=== PATIENT | male | born 1965 | race Caucasian/White ===

== ENCOUNTER 2022-03-28 10:22 | Emergency (ER) | payer MEDICAID, SELFPAY ==
[2022-03-28 10:41] VITALS: BP 128/93; PULSE 70; RESP 18; TEMP 36.8; O2SAT 100; BMI 27.8
[2022-03-28 11:13] VITALS: BP 128/93; PULSE 70; RESP 18; TEMP 36.8; O2SAT 100; BMI 27.7
--- NOTE | 2022-03-28 11:19 | EXP.UTC ---
Discharge Plan Disposition Patient Disposition: Home, Self-Care Condition: Good Prescriptions Prescriptions: New azithromycin [azithromycin] 250 mg tablet 250 mg PO DIRECTED Qty: 6 0RF Rx Instructions: Take two (2) tablets on day #1, then one (1) tablet day #2 thru #5 Referrals Follow up/Referrals: Provider,Referral, MD [Primary Care Provider] - See instructions Activity Restrictions/Add. Instructions Additional Instructions/Restrictions: Start antibiotic today. Be sure to complete entire prescription even if feeling better Tylenol and ibuprofen as needed for pain or fever Humidifier/vaporizer/hot steamy shower Follow-up with primary care tomorrow. Follow-up immediately in the ER of the [facility] for new or worsening symptoms or no noticeable improvement over the next 48-72 hours. Stop smoking Clinical Impressions Clinical Impression: Acute bronchitis Instructions Patient Instructions: DI for Acute Bronchitis Discharge ED Provider: Sola ([facility])Jessie [facility] HPI General Stated complaint: congestion, cough, Mode of Arrival: Ambulatory Source of Information: Patient Limitations: No Limitations Time Seen by Provider: 03/28/22 11:20 Description of Symptoms (Recalled from Triage Doc. by RN): pt comes in with c/o cough, runny nose, chest congestion. symptoms began 2 days ago HEENT Symptoms (Recalled from RN notes): Yes Resp Symptoms (Recalled from RN notes): Yes Skin Symptoms (Recalled from RN notes): No MS Symptoms (Recalled from RN notes): No Functional Status (Recalled from RN notes): n/a History of Present Illness Provider Complaint: 56 yr old male presents for c/o coughing up yellow sputum, runny nose, chest congestion. symptoms began 2 days ago and now mucus is getting thick and dark Related Data Previous Rx's Medication Instructions Recorded azithromycin 250 mg tablet 250 mg PO DIRECTED #6 tabs 03/28/22 Allergies Allergy/AdvReac Type Severity Reaction Status Date / Time No Known Allergies Allergy Verified 03/28/22 11:16 Worker's Comp Is this a Worker's Comp case?: No [facility] Disclaimer: The information contained in this section may have been updated after the patient was seen, as this information can be updated by other users. Social History , [employer]) Smoking Status: Smoker, status unknown alcohol intake: never current occupational status: employed Travel in the last 8 weeks: None ROS Obtained: Yes All systems reviewed & no additional complaints except as documented Constitutional Constitutional: Reports system reviewed and no additional complaints, except as documented and Reports as per HPI Eyes Eyes: Reports system reviewed and no additional complaints, except as documented and Reports as per HPI ENT Ears, Nose, Mouth, and Throat: Reports system reviewed and no additional complaints, except as documented, Reports as per HPI and Reports nasal congestion Cardiovascular Cardiovascular: Reports system reviewed and no additional complaints, except as documented and Reports as per HPI Respiratory Respiratory: Reports system reviewed and no additional complaints, except as documented, Reports as per HPI, Reports change in phlegm color, Reports cough and Reports cough with sputum production Gastrointestinal Gastrointestingal: Reports system reviewed and no additional complaints, except as documented Musculoskeletal Musculoskeletal: Reports system reviewed and no additional complaints, except as documented Integumentary/Breasts Skin/Breast: Reports system reviewed and no additional complaints, except as documented Neurologic Neurologic: Reports system reviewed and no additional complaints, except as documented Endocrine Endocrine: Reports system reviewed and no additional complaints, except as documented Hematologic/Lymphatic Henatologic/Lymphatic: Reports system reviewed and no additional complaints, except as documented
[2022-03-28 11:32] VITALS: BP 128/93; PULSE 70; RESP 18; TEMP 36.8
== END 2022-03-28 11:32 | disposition home or self-care (01) ==
LOC: ER 10:53 → UTC 10:53
PROVIDERS: Emergency Provider Nurse Practitioner Family
DX: J20.9 Acute bronchitis, unspecified (principal)
CPT/HCPCS: 99212; G0463

== ENCOUNTER 2022-05-21 11:05 | Emergency (ER) | payer MEDICAID, SELFPAY ==
[2022-05-21 11:15] VITALS: BP 133/82; PULSE 93; RESP 20; TEMP 36.9; O2SAT 97; BMI 27.6
--- NOTE | 2022-05-21 11:41 | EXP.UTC ---
Discharge Plan Disposition Patient Disposition: Home, Self-Care Condition: Good Prescriptions Prescriptions: New benzonatate 100 mg capsule 100 mg PO TID PRN (Reason: cough) Qty: 30 0RF azithromycin [Zithromax Z-Aman] 250 mg tablet See Rx Instructions .ROUTE .COMPLEX 5 Days Qty: 6 0RF Rx Instructions: For 250 mg dose pack: take 500 mg today (day 1), then 250 mg for 4 days (days 2-5) methylprednisolone [Medrol (Aman)] 4 mg tablets,dose pack See Rx Instructions .Route .COMPLEX 6 Days Qty: 21 0RF Rx Instructions: taper pack; Referrals Follow up/Referrals: Ganesh Jeong [Primary Care Provider] - See instructions Activity Restrictions/Add. Instructions Additional Instructions/Restrictions: Start antibiotic today. Be sure to complete entire prescription even if feeling better Monitor temp. Tylenol every 4 hours as needed and / or ibuprofen every 6 hours as needed ( As long as your primary care physician has told you that it ok to take both. For fever/aches/pains ER if no less than 101 despite Tylenol or Motrin Humidifier/vaporizer or hot steamy shower *Tessalon Perles will not cause drowsiness but use at bedtime to help stop cough so that you may get some rest. *Start steroid today. Helps with inflammation therefore, cough and wheezing. Follow directions on the package. Reviewed side effects. Patient reports taking them before. Follow up IMMEDIATELY for new or worsening of symptoms OR no noticeable improvement over the next 48-72 hours. 911 immediately for any life threatening symptoms such as chest pain or difficulty breathing Clinical Impressions Clinical Impression: Acute bronchitis Instructions Patient Instructions: Cough, DI for Sinusitis Discharge ED Provider: Amita Turner [facility] General Stated complaint: Cough congestion drainage Mode of Arrival: Ambulatory Source of Information: Patient Limitations: No Limitations Time Seen by Provider: 05/21/22 11:41 Description of Symptoms (Recalled from Triage Doc. by RN): congestion HEENT Symptoms (Recalled from RN notes): Yes Resp Symptoms (Recalled from RN notes): No Skin Symptoms (Recalled from RN notes): No MS Symptoms (Recalled from RN notes): No Functional Status (Recalled from RN notes): n/a History of Present Illness Provider Complaint: Patient states that he has been having sinus congestion and pressure, drainage in the back of his throat and cough States that he feels like it is trying to move into his chest Statse that he wanted to get checked before it got too bad Related Data Previous Rx's Medication Instructions Recorded azithromycin 250 mg tablet See Rx Instructions PO .COMPLEX 5 05/21/22 (Zithromax Z-Aman) days #6 tabs benzonatate 100 mg capsule 100 mg PO TID PRN cough #30 caps 05/21/22 methylprednisolone 4 mg tablets in See Rx Instructions .Route 05/21/22 a dose pack (Medrol (Aman)) .COMPLEX 6 days #21 tabs Allergies Allergy/AdvReac Type Severity Reaction Status Date / Time No Known Allergies Allergy Verified 05/21/22 11:38 Worker's Comp Is this a Worker's Comp case?: No [facility] Disclaimer: The information contained in this section may have been updated after the patient was seen, as this information can be updated by other users. Medical History (Updated 05/21/22 @ 11:45 by Amita Turner APRN) No significant past medical history Family History (Updated 05/21/22 @ 11:38 by Venus Blanco RN) Other No significant family history Social History Smoking Status: Smoker, status unknown alcohol intake: never current occupational status: employed Travel in the last 8 weeks: None ROS Obtained: Yes All systems reviewed & no additional complaints except as documented and Yes Systems reviewed as appropriate & no additional complaints except as documented Constitutional Constitutional: Reports s
[2022-05-21 11:52] VITALS: BP 133/82; PULSE 93; RESP 20; TEMP 36.9; O2SAT 97
== END 2022-05-21 11:50 | disposition home or self-care (01) ==
PROVIDERS: Emergency Provider Nurse Practitioner; PCP Family Medicine
DX: J20.9 Acute bronchitis, unspecified (principal)
CPT/HCPCS: 99212; 99213; G0463

== ENCOUNTER 2022-05-24 09:44 | Emergency (ER) | payer MEDICAID, SELFPAY ==
[2022-05-24 09:59] VITALS: BP 140/89; PULSE 70; RESP 17; TEMP 36.6; O2SAT 99; BMI 28.4
--- NOTE | 2022-05-24 10:14 | EXP.UTC ---
Discharge Plan Disposition Patient Disposition: Home, Self-Care Condition: Good Prescriptions Prescriptions: No Action benzonatate 100 mg capsule 100 mg PO TID PRN (Reason: cough) Qty: 30 0RF azithromycin [Zithromax Z-Aman] 250 mg tablet See Rx Instructions .ROUTE .COMPLEX 5 Days Qty: 6 0RF Rx Instructions: For 250 mg dose pack: take 500 mg today (day 1), then 250 mg for 4 days (days 2-5) methylprednisolone [Medrol (Aman)] 4 mg tablets,dose pack See Rx Instructions .Route .COMPLEX 6 Days Qty: 21 0RF Rx Instructions: taper pack; Referrals Follow up/Referrals: Ganesh Jeong [Primary Care Provider] - See instructions Activity Restrictions/Add. Instructions Additional Instructions/Restrictions: *Monitor Temp, Over the counter Motrin or Tylenol as directed/as needed Tylenol every 4 hours and Motrin every 6 hours (as long as your family doctor has told you that you can take it) for fever or pain. and straight to ER if unable to lower temp less than 101.0 after medication given Follow up IMMEDIATELY for new or worsening symptoms or no Noticeable improvement over the next 48-72 hours. 911 for difficulty breathing or swallowing You were tested for today for COVID19 your test result should be back in the next 24-48 hours, you may Check your Results on the [facility] Clinical Impressions Clinical Impression: Encounter for laboratory testing for COVID-19 virus Instructions Patient Instructions: COVID-19 Viral Test, Preventing the Spread of Coronavirus Discharge Instructions Discharge ED Provider: Amita Turner [facility] HPI General Stated complaint: Covid exposure covid test Mode of Arrival: Ambulatory Source of Information: Patient Limitations: No Limitations Time Seen by Provider: 05/24/22 10:14 Description of Symptoms (Recalled from Triage Doc. by RN): pt had recent covid exposure, but no symptoms. HEENT Symptoms (Recalled from RN notes): No Resp Symptoms (Recalled from RN notes): No Skin Symptoms (Recalled from RN notes): No MS Symptoms (Recalled from RN notes): No Functional Status (Recalled from RN notes): n/a History of Present Illness Provider Complaint: Patient states that he was recently around his brother that has tested positive for COVID States that he was sick when he was around brother but feeling better now, states that he wanted to get tested to make sure he doesnt have it Related Data Previous Rx's Medication Instructions Recorded azithromycin 250 mg tablet See Rx Instructions PO .COMPLEX 5 05/21/22 (Zithromax Z-Aman) days #6 tabs benzonatate 100 mg capsule 100 mg PO TID PRN cough #30 caps 05/21/22 methylprednisolone 4 mg tablets in See Rx Instructions .Route 05/21/22 a dose pack (Medrol (Aman)) .COMPLEX 6 days #21 tabs Allergies Allergy/AdvReac Type Severity Reaction Status Date / Time No Known Allergies Allergy Verified 05/24/22 10:02 Worker's Comp Is this a Worker's Comp case?: No [facility] Disclaimer: The information contained in this section may have been updated after the patient was seen, as this information can be updated by other users. Medical History (Updated 05/24/22 @ 10:20 by Amita Turner APRN) No significant past medical history Family History (Updated 05/21/22 @ 11:38 by Venus Blanco RN) Other No significant family history Social History Smoking Status: Smoker, status unknown alcohol intake: never current occupational status: employed Travel in the last 8 weeks: None ROS Obtained: Yes All systems reviewed & no additional complaints except as documented and Yes Systems reviewed as appropriate & no additional complaints except as documented Constitutional Constitutional: Reports system reviewed and no additional complaints, except as documented and Reports as per HPI ENT Ears, Nose, Mouth, and Throat: Reports system reviewed and no additional complaints, exc
[2022-05-24 10:30] VITALS: BP 140/80; PULSE 70; RESP 17; TEMP 36.6; O2SAT 99
== END 2022-05-24 10:34 | disposition home or self-care (01) ==
PROVIDERS: Emergency Provider Nurse Practitioner; PCP Family Medicine
DX: U07.1 COVID-19
CPT/HCPCS: 99212; C9803; G0463; U0003; U0005

== ENCOUNTER 2022-11-10 11:12 | Emergency (ER) | payer MEDICAID, SELFPAY ==
[2022-11-10 11:13] VITALS: BP 139/98; PULSE 67; RESP 18; TEMP 36.9; O2SAT 98; BMI 27.1
--- NOTE | 2022-11-10 11:24 | CT_ITS ---
FINAL REPORT TECHNIQUE: Noncontrast exam CLINICAL HISTORY: fall head injury FINDINGS: No abnormal density is seen. Ventricles are normal. There is no hemorrhage. No mass effect is seen. Bone windows show no evidence of fracture. IMPRESSION: No acute findings Reviewed, Interpreted and Dictated by Cheyenne Gomez MD Transcribed by Lady Porter Authenticated and [facility]
--- NOTE | 2022-11-10 11:25 | HMH.EDGENADL ---
Discharge Plan Disposition Patient Disposition: Home, Self-Care Prescriptions Prescriptions: No Action benzonatate 100 mg capsule 100 mg PO TID PRN (Reason: cough) Qty: 30 0RF azithromycin [Zithromax Z-Aman] 250 mg tablet See Rx Instructions .ROUTE .COMPLEX 5 Days Qty: 6 0RF Rx Instructions: For 250 mg dose pack: take 500 mg today (day 1), then 250 mg for 4 days (days 2-5) methylprednisolone [Medrol (Aman)] 4 mg tablets,dose pack See Rx Instructions .Route .COMPLEX 6 Days Qty: 21 0RF Rx Instructions: taper pack; Referrals Follow up/Referrals: Provider,Referral, MD [Primary Care Provider] - See instructions Activity Restrictions/Add. Instructions Additional Instructions/Restrictions: Please get your antonia removed in 7 to 10 days. You may take Tylenol as needed for your symptoms. Return with any worsening concerns. Clinical Impressions Clinical Impression: Minor head injury, Laceration of scalp, Concussion Discharge ED Provider: Jorge Belcher General Adult HPI General Chief complaint: Head Injury Stated complaint: AO 11/10 fall, head pain/laceration, lightheaded Time Seen by Provider: 11/10/22 11:19 History of Present Illness HPI narrative: 57-year-old male here with a head injury. 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 Did not lose consciousness but has had some dizziness and some nausea associated with this. No neck pain or injuries elsewhere. He does have some bleeding on the posterior side of his head. Tetanus is unknown. Related Data Previous Rx's Medication Instructions Recorded azithromycin 250 mg tablet See Rx Instructions PO .COMPLEX 5 05/21/22 (Zithromax Z-Aman) days #6 tabs benzonatate 100 mg capsule 100 mg PO TID PRN cough #30 caps 05/21/22 methylprednisolone 4 mg tablets in See Rx Instructions .Route 05/21/22 a dose pack (Medrol (Aman)) .COMPLEX 6 days #21 tabs Allergies Allergy/AdvReac Type Severity Reaction Status Date / Time No Known Allergies Allergy Verified 05/24/22 10:02 [facility] Disclaimer: The information contained in this section may have been updated after the patient was seen, as this information can be updated by other users. Medical History (Updated 11/10/22 @ 14:04 by Jorge Belcher MD) No significant past medical history Family History (Updated 05/21/22 @ 11:38 by Venus Blanco RN) Other No significant family history Social History Smoking Status: Never smoker alcohol intake: never current occupational status: employed Travel in the last 8 weeks: None ROS Obtained: Yes All systems reviewed & no additional complaints except as documented Physical Exam General General appearance: alert and in no apparent distress Head Head exam: other (There is a 2 cm vertically oriented laceration in the posterior occipital region of the scalp there is no evidence of depressed skull fracture no rodriguez sign or raccoon eyes) Respiratory Respiratory exam: Present normal lung sounds bilaterally and respiratory distress Cardiovascular Cardiovascular exam: Present regular rate; Absent tachycardia Neurological Exam Neurological exam: Present alert and oriented X3 Medical Decision Making [place] Inquiry Pt receiving controlled substance: No Vital Signs: 11/10/22 11:13 11/10/22 11:30 11/10/22 12:00 Temperature 98.4 F Temperature Source Oral Pulse Rate 65 Pulse Rate [Left Radial] 67 Respiratory Rate 18 20 Blood Pressure 130/90 130/89 Blood Pressure [Right Arm] 139/98 H Blood Pressure Mean 102 102 Blood Pressure Mean [Right Arm] 111 Blood Pressure Source [Right Arm] Automatic Cuff Blood Pressure Position [Right Arm] Sitting 02 Sat by Pulse Oximetry 98 98 Oxygen Delivery Method Room Air 11/10/22 12:30 Temperature Temperatur
[2022-11-10 11:30] VITALS: BP 130/90
[2022-11-10 12:00] VITALS: BP 130/89; PULSE 65; RESP 20; O2SAT 98
[2022-11-10 12:30] VITALS: BP 117/86; PULSE 59; RESP 20; O2SAT 98
[2022-11-10 14:20] VITALS: BP 113/78; PULSE 52; RESP 18; TEMP 36.4; O2SAT 98
== END 2022-11-10 14:20 | disposition home or self-care (01) ==
PROVIDERS: Emergency Provider Student in an Organized Health Care Education/Training Program
DX: S06.0X0A Concussion without loss of consciousness, initial encounter (principal); S01.01XA Laceration without foreign body of scalp, initial encounter; R42 Dizziness and giddiness; R11.0 Nausea; W18.30XA Fall on same level, unspecified, initial encounter; Z23 Encounter for immunization
CPT/HCPCS: 12001; 70450; 90471; 90715; 96372; 99284

== ENCOUNTER 2022-11-19 14:54 | Emergency (ER) | payer MEDICAID, SELFPAY ==
[2022-11-19 14:55] VITALS: BP 126/74; PULSE 81; RESP 16; TEMP 36.7; O2SAT 100; BMI 29.4
[2022-11-19 15:00] VITALS: BP 126/74; PULSE 81; RESP 16; TEMP 36.7; O2SAT 100
== END 2022-11-19 15:02 | disposition home or self-care (01) ==
LOC: UTC 14:57
PROVIDERS: Emergency Provider Nurse Practitioner
DX: Z48.02 Encounter for removal of sutures (principal)

== ENCOUNTER 2024-01-30 10:14 | Emergency (ER) | payer MEDICAID, SELFPAY ==
[2024-01-30 11:00] VITALS: BP 158/108; PULSE 65; RESP 20; TEMP 36.7; O2SAT 98; BMI 38.9
--- NOTE | 2024-01-30 11:20 | EXP.UTC ---
Discharge Plan Disposition Patient Disposition: Home, Self-Care Condition: Good Referrals Follow up/Referrals: Provider,Referral, MD [Primary Care Provider] - See instructions Activity Restrictions/Add. Instructions Additional Instructions/Restrictions: Follow up with your Family Doctor if needed Straight to ER if any life threatening symptoms Follow up with ENT if you continue to have symptoms Do not stick anything in your ear Clinical Impressions Clinical Impression: Foreign body in ear Instructions Patient Instructions: DI for Removal of Foreign Body From Ear Print Language Print Language: Cambodian Discharge ED Provider: Amita Turner [facility] General Stated complaint: object in right ear Mode of Arrival: Ambulatory Source of Information: Patient Time Seen by Provider: 01/30/24 11:21 Description of Symptoms (Recalled from Triage Doc. by RN): THINKS HE HAS A COTTON TIP STUCK IN RIGHT EAR HEENT Symptoms (Recalled from RN notes): Yes Resp Symptoms (Recalled from RN notes): No Skin Symptoms (Recalled from RN notes): No MS Symptoms (Recalled from RN notes): No Functional Status (Recalled from RN notes): WNL History of Present Illness Provider Complaint: Patient states that he was cleaning his ear with Qtip and thinks some of the cotton came off in his ear feels like a piece is stuck in there Related Data Allergies Allergy/AdvReac Type Severity Reaction Status Date / Time No Known Allergies Allergy Verified 05/24/22 10:02 Worker's Comp Is this a Worker's Comp case?: No [facility] Disclaimer: The information contained in this section may have been updated after the patient was seen, as this information can be updated by other users. Medical History (Updated 01/30/24 @ 11:25 by Amita Turner APRN) No significant past medical history Family History (Updated 05/21/22 @ 11:38 by Venus Blanco RN) Other No significant family history Social History Smoking Status: Never smoker alcohol intake: never current occupational status: employed Travel in the last 8 weeks: None ROS Obtained: Yes All systems reviewed & no additional complaints except as documented and Yes Systems reviewed as appropriate & no additional complaints except as documented Constitutional Constitutional: Reports system reviewed and no additional complaints, except as documented and Reports as per HPI ENT Ears, Nose, Mouth, and Throat: Reports system reviewed and no additional complaints, except as documented, Reports as per HPI and Reports otalgia (feels like cotton stuck in ear) Cardiovascular Cardiovascular: Reports system reviewed and no additional complaints, except as documented and Reports as per HPI Respiratory Respiratory: Reports system reviewed and no additional complaints, except as documented and Reports as per HPI Gastrointestinal Gastrointestingal: Reports system reviewed and no additional complaints, except as documented and as per HPI Physical Exam General General appearance: alert and in no apparent distress ENT ENT exam: Present mucous membranes moist Expanded ENT Exam TM/Canal exam: Right TM: foreign body (small piece of cotton noted) Nose exam: Absent sinus tenderness Throat exam: Present normal inspection Respiratory Respiratory exam: Present normal lung sounds bilaterally; Absent respiratory distress or wheezes Cardiovascular Cardiovascular exam: Present regular rate, normal rhythm and normal heart sounds Neurological Exam Neurological exam: Present alert, oriented X3 and normal gait Medical Decision Making Medical Records Screening: Per USPSTF and CDC recommendations, given the prevalence of disease in our region, it is our hospital?s policy to screen for HIV and viral Hepatitis for all patients aged 18 and over and those with ongoing risk factors. [place] Inquiry Pt receiving controlled substance: No [place] was queried for this patient: No Vital Signs: 01/30/24 11:00 Temperature 98.1 F Temperature Source Oral Pulse Rate [Left Brachial] 65 Respiratory Rate 20 Blood Pressure [Left Arm] 158/108 H Blood Pressure Mean [Left Arm] 124 02 Sat by Pulse Oximetry 98 Procedures FB Removal Ear Location: ear canal (R) Foreign Body Suspected: other (small piece of cotton) TM intact pre-procedure: yes Foreign Body Removed: yes (small piece of cotton noted in irrigation liquid) Foreign Body Removal Technique: irrigation Tympanic Membrane Intact Post Procedure: Yes Patient Tolerated Procedure: well Complications: none
[2024-01-30 11:51] VITALS: BP 158/108; PULSE 65; RESP 20; TEMP 36.7
== END 2024-01-30 11:51 | disposition home or self-care (01) ==
PROVIDERS: Emergency Provider Nurse Practitioner
DX: T16.9XXA Foreign body in ear, unspecified ear, initial encounter (principal); H92.01 Otalgia, right ear
CPT/HCPCS: 99212; G0381

== ENCOUNTER 2024-03-25 23:02 | Emergency (ER) | payer MEDICAID, SELFPAY ==
[2024-03-25 23:03] VITALS: BP 183/114; PULSE 75; RESP 20; TEMP 36.7; O2SAT 97; BMI 27.1
--- NOTE | 2024-03-25 23:06 | HMH.EDGENADL ---
Discharge Plan Disposition Patient Disposition: Home, Self-Care Prescriptions Prescriptions: New levofloxacin 750 mg tablet 750 mg PO DAILY 7 Days Qty: 7 0RF Referrals Follow up/Referrals: Provider,Moom, [Primary Care Provider] - See instructions Activity Restrictions/Add. Instructions Additional Instructions/Restrictions: Please follow-up with your primary care provider. Please return to the emergency department if you develop any new or worsening symptoms or become concerned for your health. Please take antibiotics as prescribed to treat your urinary tract infection. Clinical Impressions Clinical Impression: Acute UTI Instructions Patient Instructions: DI for Urinary Tract Infection (UTI), DI for Urinary Tract Infection in Children Print Language Print Language: Italian Discharge ED Provider: Thony Montano Adult HPI General Chief complaint: Urogenital-Male Stated complaint: possible UTI Time Seen by Provider: 03/25/24 23:06 History of Present Illness HPI narrative: 58-year-old male without significant past medical history presents for burning with urination. He reports has been ongoing for the last few days. He took Azo at home over the last few days. He denies any flank pain, denies any fever or generalized symptoms. Reports he had a UTI a few years ago as well. Related Data Previous Rx's ?Medication ?Instructions ?Recorded levofloxacin 750 mg tablet 750 mg PO DAILY 7 days #7 tabs 03/25/24 Allergies Allergy/AdvReac Type Severity Reaction Status Date / Time No Known Allergies Allergy Verified 05/24/22 10:02 [facility] Disclaimer: The information contained in this section may have been updated after the patient was seen, as this information can be updated by other users. Medical History (Updated 03/25/24 @ 23:43 by Thony Montano MD) No significant past medical history Family History (Updated 05/21/22 @ 11:38 by Venus Blanco RN) Other No significant family history Social History Smoking Status: Never smoker alcohol intake: never current occupational status: employed Travel in the last 8 weeks: None ROS Obtained: Yes All systems reviewed & no additional complaints except as documented Physical Exam General General appearance: alert and in no apparent distress Head Head exam: atraumatic and normocephalic Eye Eye exam: Present normal appearance, PERRL and EOMI ENT ENT exam: Present normal oropharynx and normal external ear exam Neck Neck exam: Present normal inspection and full ROM Chest Chest inspection: Present normal inspection and symmetric chest wall rise; Absent tenderness Respiratory Respiratory exam: Present normal lung sounds bilaterally; Absent respiratory distress Cardiovascular Cardiovascular exam: Present regular rate and normal rhythm Abdominal Exam Abdominal exam: Present soft; Absent distention, tenderness or guarding Extremities Exam Extremities exam: Present normal inspection; Absent edema or joint swelling Back Exam Back exam: Present normal inspection; Absent tenderness Neurological Exam Neurological exam: Present alert and oriented X3; Absent motor sensory deficit Psychiatric Psychiatric exam: Present normal affect and normal mood Skin Skin exam: Present warm, dry and normal color Lymphatic Lymphatic Findings: no adenopathy Medical Decision Making Medical Records Medical records reviewed: Yes I reviewed the patient's medical records. Screening: Per USPSTF and CDC recommendations, given the prevalence of disease in our region, it is our hospital?s policy to screen for HIV and viral Hepatitis for all patients aged 18 and over and those with ongoing risk factors. [place] Inquiry Pt receiving controlled substance: No [place] was queried for this patient: No Vital Signs: 03/25/24 23:03 Temperature 98.0 F Temperature Source Oral Pulse Rate [Right] 75 Respiratory Rate 20 Blood Pressure [Right Arm] 183/114 H Blood Pressure Mean [Right Arm] 137 02 Sat by Pulse Oximetry 97 Oxygen Delivery Method Room Air Lab Data Lab results reviewed: Yes I reviewed the patient's lab results. Lab Results 03/25/24 23:12: Urine Color Yellow, Urine Appearance Clear, Urine pH 6.5, Ur Specific [place] 1.020, Urine Protein Negative, Urine Glucose (UA) Negative, Urine Ketones Negative, Urine Blood Negative, Urine Nitrate Positive A, Urine Bilirubin Negative, Urine Urobilinogen 1.0, Ur Leukocyte Esterase Negative, Urine RBC None, Urine WBC Occasional, Ur Squamous Epith Cells None, Urine Bacteria Trace Orders (Tests/Meds): ED MEDICATIONS Discontinued Medications Generic Name Dose Route Start Last Admin Trade Name Freq PRN Reason Stop Dose Admin Levofloxacin 750 mg 03/25/24 23:42 Levofloxacin 750 Mg Tablet PO 03/25/24 23:43 ONCE ONE ORDERS Category Date Time Status UA [Urinalysis and Microscopic] Stat Lab 03/25/24 23:12 Completed Urine Culture Stat Micro 03/25/24 23:12 Received Medical Decision Narrative: 58-year-old male without significant past medical history presents for dysuria for the last few days. History was obtained via interactive discussion with patient. On arrival, patient is [afebrile, hemodynamically stable, satting appropriately, alert, oriented x4, GCS 15], moving all extremities spontaneously. Full physical exam performed and significant for no CVA tenderness, no abdominal tenderness, Differential includes but is not limited to UTI, pyelonephritis, kidney stone, prostatitis. Workup initiated including urinalysis. On re-evaluation, patient [remains afebrile, HD stable.] Laboratory workup independently interpreted by me and significant for positive nitrate which is likely artifactual given patient is taking Azo. It does show occasional WBC and trace bacteria. Given he is having dysuria we will treated as urinary tract infection. He denies any pain with defecation, testicular pain or perineal pain to suggest prostatitis. We will treat with Levaquin for 7 days. Given dose in the ER discharged with prescription. Return precautions given.. Procedures Risk/Benefits of Procedure(s) Were Explained: Yes Critical Care Critical Care Time Critical Care Time: No
[2024-03-25 23:18] LABS: Microscopic, Urine URINE MICROSCOPIC (MICROSCOPIC)
[2024-03-25 23:19] LABS: Appearance,Urine CLEAR (Clear); Bilirubin,Urine Negative (Negative); Blood, Urine Negative (Negative); Color,Urine YELLOW (Yellow); Glucose,Urine (UA) Negative (Negative); Ketones,Urine Negative (Negative); Leukocyte Esterase,Urine Negative (Negative); Nitrate,Urine POSITIVE (Negative); PH,Urine 6.5 (5.0-8.5); Protein,Urine Negative (Negative)
[2024-03-25 23:30] LABS: Bacteria,Urine Trace /lpf; WBC,Urine Occasional #/hpf (0-3)
[2024-03-25 23:56] VITALS: BP 146/93; PULSE 63; RESP 16; TEMP 36.8; O2SAT 99
[2024-03-26] MEDS: levoFLOXacin 750 MG TABLET PO (00:01)
== END 2024-03-26 00:04 | disposition home or self-care (01) ==
PROVIDERS: Emergency Provider Emergency Medicine
DX: N39.0 Urinary tract infection, site not specified (principal); R30.9 Painful micturition, unspecified
CPT/HCPCS: 81001; 87086; 99283

== ENCOUNTER 2024-03-28 02:16 | Emergency (ER) | payer MEDICAID, SELFPAY ==
[2024-03-28 02:17] VITALS: BP 158/104; PULSE 97; RESP 14; TEMP 36.8; O2SAT 99; BMI 27.1
--- NOTE | 2024-03-28 02:33 | ED_ITS ---
Discharge Plan Disposition Patient Disposition: Home, Self-Care Prescriptions Prescriptions: No Action levofloxacin 750 mg tablet 750 mg PO DAILY 7 Days Qty: 7 0RF Referrals Follow up/Referrals: Melissa Rader APRN [Primary Care Provider] - See instructions Activity Restrictions/Add. Instructions Additional Instructions/Restrictions: Please follow-up with your primary care provider. Please return to the emergency department if you develop any new or worsening symptoms or become concerned for your health. Clinical Impressions Clinical Impression: Nervousness Print Language Print Language: Tamazight Discharge ED Provider: Thony Montano General Adult HPI General Chief complaint: Anxiety Stated complaint: anxiety Time Seen by Provider: 03/28/24 02:16 Mode of Arrival: Ambulatory Source of Information: Patient Limitations: No Limitations Description of Symptoms (Recalled from ER Triage Doc. by RN): patient reports anxiety since around 7pm. States he thinks it is because he lost his around this time. History of Present Illness HPI narrative: 58-year-old male with recent ER visit for urinary tract infection, currently on Levaquin presents for worsening anxiety. He reports that he is been feeling more anxious recently. He saw his PCP this morning and they decided to restart his Lexapro. He took a dose today and this evening he felt more nervous than before. He denies any chest pain abdominal pain shortness of breath fever chills nausea vomiting headache vision changes or any homicidal or suicidal ideation. Related Data Previous Rx's ?Medication ?Instructions ?Recorded levofloxacin 750 mg tablet 750 mg PO DAILY 7 days #7 tabs 03/25/24 Allergies Allergy/AdvReac Type Severity Reaction Status Date / Time No Known Allergies Allergy Verified 05/24/22 10:02 [facility] Disclaimer: The information contained in this section may have been updated after the patient was seen, as this information can be updated by other users. Medical History (Updated 03/28/24 @ 02:33 by Thony Montano MD) No significant past medical history Family History (Updated 05/21/22 @ 11:38 by Venus Blanco RN) Other No significant family history Social History Smoking Status: Never smoker alcohol intake: never current occupational status: employed Travel in the last 8 weeks: None ROS Obtained: Yes All systems reviewed & no additional complaints except as documented Physical Exam General General appearance: alert and anxious Head Head exam: atraumatic and normocephalic Eye Eye exam: Present normal appearance, PERRL and EOMI ENT ENT exam: Present normal oropharynx and normal external ear exam Neck Neck exam: Present normal inspection and full ROM Chest Chest inspection: Present normal inspection and symmetric chest wall rise; Absent tenderness Respiratory Respiratory exam: Present normal lung sounds bilaterally; Absent respiratory distress Cardiovascular Cardiovascular exam: Present regular rate and normal rhythm Abdominal Exam Abdominal exam: Present soft; Absent distention, tenderness or guarding Extremities Exam Extremities exam: Present normal inspection; Absent edema or joint swelling Back Exam Back exam: Present normal inspection; Absent tenderness Neurological Exam Neurological exam: Present alert and oriented X3; Absent motor sensory deficit Psychiatric Psychiatric exam: Present anxious Skin Skin exam: Present warm, dry and normal color Lymphatic Lymphatic Findings: no adenopathy Medical Decision Making Medical Records Medical records reviewed: Yes I reviewed the patient's medical records. Screening: Per USPSTF and CDC recommendations, given the prevalence of disease in our region, it is our hospital?s policy to screen for HIV and viral Hepatitis for all patients aged 18 and over and those with ongoing risk factors. [place] Inquiry Pt receiving controlled substance: No [place] was queried for this patient: No Vital Signs: 03/28/24 02:17 Temperature 98.2 F Temperature Source Oral Pulse Rate [Right Radial] 97 H Respiratory Rate 14 Blood Pressure [Right Arm] 158/104 H Blood Pressure Mean [Right Arm] 122 Blood Pressure Source [Right Arm] Automatic Cuff Blood Pressure Position [Right Arm] Sitting 02 Sat by Pulse Oximetry 99 Oxygen Delivery Method Room Air Lab Data Lab results reviewed: Yes I reviewed the patient's lab results. Medical Decision Narrative: 58-year-old male going for UTI presents for worsening anxiety after restarting his Lexapro today.. History was obtained via interactive discussion with patient. On arrival, patient is [afebrile, hemodynamically stable, satting appropriately, alert, oriented x4, GCS 15], moving all extremities spontaneously. Full physical exam performed and significant for no significant physical exam abnormality, though patient is anxious appearing. He denies any suicidal homicidal ideation. He denies any other symptoms on review of systems. Differential includes but is not limited to anxiety, depression, medication side effect.. Blood work, EKG, radiographic imaging was considered, but deemed unnecessary due to benign exam, no symptoms besides feeling nervous. Given patient history, exam and workup, patient's presentation most likely represents worsening anxiety related to the loss of his several years ago at this time a year, could also be a result of restarting his Lexapro earlier today. I had extensive discussion with patient regarding his symptoms and he was discharged in stable condition with return precautions. Procedures Risk/Benefits of Procedure(s) Were Explained: Yes Critical Care Critical Care Time Critical Care Time: No
[2024-03-28 02:35] VITALS: BP 158/104; PULSE 97; RESP 18; TEMP 36.8; O2SAT 99
== END 2024-03-28 02:37 | disposition home or self-care (01) ==
PROVIDERS: Emergency Provider Emergency Medicine; PCP Nurse Practitioner
DX: R45.0 Nervousness (principal)
CPT/HCPCS: 99281

== ENCOUNTER 2025-04-14 14:17 | Outpatient (CLI) | payer MEDICAID, SELFPAY ==
--- OUTSIDE RECORDS SUMMARY | 2025-04-15 10:19 | XMS_ITS | Clinical Summary ---
Author Organization [facility] Address [facility] [place] [address] Care Team Providers Care Fruit Farmer Name Role Phone Ganesh Jeong MD Primary Care Provider [phone] Allergies No known active allergies Medications hydrOXYzine [...] of Treatment Not on file [place] [id number] Care Teams Fruit Farmer Relationship Specialty Start Date End Date Ganesh Jeong MD [id number] PCP - General 08/27/20
== END 2025-04-14 23:59 | disposition home or self-care (01) ==
LOC: LAB.DROPOF 04-15 10:16
PROVIDERS: PCP Nurse Practitioner; Visit Provider Nurse Practitioner Family
DX: N39.0 Urinary tract infection, site not specified (principal)
CPT/HCPCS: 87086; 87088

== ENCOUNTER 2025-04-14 14:46 | Emergency (ER) | payer MEDICAID, SELFPAY ==
[2025-04-14] VITALS (7 sets, daily range): BP systolic 151–175; BP diastolic 90–119; PULSE 69–88; RESP 18; TEMP 36.6; O2SAT 98–100; BMI 25.0
[2025-04-14 14:57] LABS: Microscopic, Urine URINE MICROSCOPIC (MICROSCOPIC)
[2025-04-14 15:00] LABS: Bilirubin,Urine Negative (Negative); Color,Urine YELLOW (Yellow); Glucose,Urine (UA) Negative (Negative); Ketones,Urine Negative (Negative); Leukocyte Esterase,Urine Negative (Negative); PH,Urine 6.0 (5.0-8.5); Protein,Urine Negative (Negative); Specific Gravity, Urine 1.020 (1.005-1.030); Urobilinogen,Urine 0.2 EU/dl (0.2)
--- OUTSIDE RECORDS SUMMARY | 2025-04-14 15:02 | XMS_ITS | Clinical Summary ---
Author Organization [facility] Address [facility] 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 12 capsule 04/19/2021 Active Social History Tobacco Use Types Packs/Day Years Used Date Smoking Tobacco: Never Assessed Sex and Gender Information Value Date Recorded Sex Assigned at Not on file Legal Sex Male 8:09 PM EDT Gender Identity Not on file Sexual Orientation Not on file Last Filed Vital Signs Vital Sign Reading Time Taken Comments Blood Pressure 148/100 04/19/2021 6:44 PM EST Pulse 77 04/19/2021 6:44 PM EST Temperature 36.9 C (98.4 F) 04/19/2021 3:58 PM EST Respiratory Rate 18 04/19/2021 6:44 PM EST Oxygen Saturation 97% 04/19/2021 6:44 PM EST Inhaled Oxygen Concentration - - Weight - - Height - - Body Mass Index - - Plan of Treatment Not on [place] [id number] Care Teams Sinter Machine Operator Relationship Specialty Start Date End Date Ganesh Jeong MD [id number] PCP - General 08/27/20
--- NOTE | 2025-04-14 15:07 | XR_ITS ---
FINAL REPORT TECHNIQUE: Single view chest CLINICAL HISTORY: short of breath FINDINGS: A single view of the chest was obtained. The heart and mediastinum are within normal limits. The lungs are clear. There is no pneumothorax. IMPRESSION: No acute cardiopulmonary process. Reviewed, Interpreted and Dictated by Yara Cornejo MD Transcribed by Lady Porter Authenticated and [facility]
--- NOTE | 2025-04-14 15:07 | CT_ITS ---
FINAL REPORT TECHNIQUE: Thin section axial images are obtained through the abdomen and pelvis after intravenous contrast. Reconstruction images were obtained from the axial data. Exam was performed using dose reduction techniques. CLINICAL HISTORY: abdominal pain x few days. utc found blood in urine FINDINGS: LUNG BASES: Lung bases are clear. Heart size is normal. LIVER: Homogeneous. No focal lesion. GALLBLADDER/BILIARY SYSTEM: Gallbladder is mildly distended. No gallstones. No biliary dilatation. SPLEEN: Unremarkable. PANCREAS: Unremarkable. ADRENALS: Unremarkable. KIDNEYS/URETERS/BLADDER: No hydronephrosis or renal stone. There is a 10 mm hyperdense lesion arising from the lower pole of the right kidney which is indeterminate. Urinary bladder is incompletely distended. GI TRACT: No small bowel obstruction or dilatation. Normal appendix. No acute colon abnormality. PELVIC ORGANS: Prostate is enlarged. LYMPH NODES/RETROPERITONEUM/MESENTERY: No lymphadenopathy. No abdominal aortic aneurysm. ABDOMINAL WALL: The abdominal wall is intact. FREE FLUID: No ascites. BONES: No acute osseous abnormality. IMPRESSION: No acute process of the abdomen or pelvis. 10 mm hyperdense right renal lesion which could be a small solid lesion or hyperdense cyst. Recommend renal mass protocol CT in outpatient setting. Enlarged prostate. Reviewed, Interpreted and Dictated by Yara Cornejo MD Transcribed by Lady Porter Authenticated and [facility]
[2025-04-14 15:13] LABS: Hematocrit 46.0 % (42.0-52.0); Hemoglobin 16.1 g/dL (14.1-18.0); Immature Granulocytes % 0.4 %; Mean Corpuscular HGB Conc 35.0 g/dL (31.8-35.4); Mean Corpuscular Hemoglobin 31.8 pg (27.0-31.2); Mean Corpuscular Volume 90.9 fl (80-94); Nucleated Red Blood Cells % 0 %; Platelet Count 184 K/mm3 (142-424); Red Blood Count 5.06 M/mm3 (4.60-6.20); Red Cell Distribution Width-SD 40.2 fL; White Blood Count 8.9 K/mm3 (4.8-10.8)
--- NOTE | 2025-04-14 15:14 | ED_ITS ---
<Statement entered by Jorge Belcher MD - 04/14/25 23:19> I was consulted by the DAVION, and we discussed the complexity of the problems being addressed. I approved the treatment and management plan for this patient's care in the emergency department, thus performing a substantive portion of the medical decision making. Jorge Belcher MD, SARA, FACEP Discharge Plan Disposition Chief Complaint: Abdominal Pain Prescriptions Prescriptions: No Action diazepam [Valium] 5 mg tablet 5 mg PO TID PRN Referrals Follow up/Referrals: Melissa Rader APRN [Primary Care Provider, Medical] - See instructions Instructions Patient Instructions: DI for Acute Abdominal Pain Print Language Print Language: Syriac Discharge ED Provider: Jorge Belcher General Adult HPI General Chief complaint: Abdominal Pain Stated complaint: abdominal, back, right side pain w nausea Time Seen by Provider: 04/14/25 14:58 Mode of Arrival: Ambulatory Source of Information: Patient Description of Symptoms (Recalled from ER Triage Doc. by RN): Patient c/o nausea and belly pain that started a few days ago. Patient reports he was seen in the [facility] today and they found blood in his urine so he was sent over to the ED for further evaluation. History of Present Illness HPI narrative: 59-year-old male presents to the ED today for complaint of blood in his urine at the urgent treatment center today. He has been having right sided abdominal pain but says it moves across to his abdomen and into the left side of his back. He says it started last night. He also started with nausea today. No fevers or chills. He is anxious and depressed as he has buried his brother over the weekend and has been very upset about this. He is also still grieving the of his . Related Data Home Medications ?Medication ?Instructions ?Recorded ?Confirmed diazepam 5 mg tablet (Valium) 5 mg PO TID PRN 04/14/25 04/14/25 Allergies Allergy/AdvReac Type Severity Reaction Status Date / Time No Known Allergies Allergy Verified 04/14/25 14:23 [facility] Disclaimer: The information contained in this section may have been updated after the patient was seen, as this information can be updated by other users. Medical History No significant past medical history Family History Other No significant family history Social History Smoking Status: Never smoker alcohol intake: never current occupational status: employed Travel in the last 8 weeks?: None Have you lived/traveled outside [place] in past 30 days?: No Contact w/someone who lives/traveled outside [place] past 30 days?: No Exposure to someone with infectious disease in past 14 days?: No Do you have a fever (greater than 100.4 F or 38 C)?: No Have you tested positive for COVID-19?: No Exposed to someone with COVID-19 in past 14 days?: No Do you have a sore throat?: No Do you have a cough?: No Do you have any weakness?: No Do you have any diarrhea?: No Are you experiencing any unusual bleeding?: No Do you have any muscle aches/pain?: No Do you have any abdominal pain?: No Are you experiencing loss of taste or smell?: No ROS Obtained: Yes Systems reviewed as appropriate & no additional complaints except as documented Constitutional Constitutional: Reports as per HPI Physical Exam General General appearance: alert and anxious Head Head exam: normocephalic Eye Eye exam: Present PERRL and EOMI ENT ENT exam: Present normal oropharynx Neck Neck exam: Present full ROM and trachea midline Respiratory Respiratory exam: Present normal lung sounds bilaterally Cardiovascular Cardiovascular exam: Present regular rate, normal rhythm, normal heart sounds, +S1 and +S2 Abdominal Exam Abdominal exam: Present soft and normal bowel sounds Abdominal tenderness: Present diffuse Extremities Exam Extremities exam: Present full ROM and normal capillary refill Back Exam Back exam: Present normal inspection Neurological Exam Neurological exam: Present alert and oriented X3 Skin Skin exam: Present warm and dry Medical Decision Making Medical Records Screening: Per USPSTF and CDC recommendations, given the prevalence of disease in our region, it is our hospital?s policy to screen for HIV and viral Hepatitis for all patients aged 18 and over and those with ongoing risk factors. [place] Inquiry Pt receiving controlled substance: No [place] was queried for this patient: No Vital Signs: 04/14/25 15:00 04/14/25 15:00 04/14/25 15:15 Pulse Rate 82 88 Pulse Rate [Right Brachial] 85 Respiratory Rate 18 Blood Pressure 175/119 H Blood Pressure [Right Arm] 161/117 H Blood Pressure Mean [Right Arm] 131 Blood Pressure Source [Right Arm] Automatic Cuff Blood Pressure Position [Right Arm] Sitting 02 Sat by Pulse Oximetry 98 98 98 Oxygen Delivery Method Room Air 04/14/25 15:45 04/14/25 16:00 04/14/25 16:15 Pulse Rate 72 69 69 Pulse Rate [Right Brachial] Respiratory Rate Blood Pressure 153/98 H 159/103 H 154/97 H Blood Pressure [Right Arm] Blood Pressure Mean [Right Arm] Blood Pressure Source [Right Arm] Blood Pressure Position [Right Arm] 02 Sat by Pulse Oximetry 99 99 99 Oxygen Delivery Method 04/14/25 16:30 Pulse Rate 72 Pulse Rate [Right Brachial] Respiratory Rate Blood Pressure 158/104 H Blood Pressure [Right Arm] Blood Pressure Mean [Right Arm] Blood Pressure Source [Right Arm] Blood Pressure Position [Right Arm] 02 Sat by Pulse Oximetry 100 Oxygen Delivery Method Lab Data Lab Results 04/14/25 14:52: Urine Color Yellow, Urine Appearance Clear, Urine pH 6.0, Ur Specific [place] 1.020, Urine Protein Negative, Urine Glucose (UA) Negative, Urine Ketones Negative, Urine Blood Trace-i, Urine Nitrate Negative, Urine Bilirubin Negative, Urine Urobilinogen 0.2, Ur Leukocyte Esterase Negative, Urine RBC 3-5, Urine WBC Occasional, Ur Squamous Epith Cells Occasional, Urine Bacteria 1+ 04/14/25 15:00: WBC 8.9, RBC 5.06, Hgb 16.1, Hct 46.0, MCV 90.9, MCH 31.8 H, MCHC 35.0, RDW 12.1, Plt Count 184, MPV 11.5 H, Neut % (Auto) 62.6, Lymph % (Auto) 24.0, [place] % (Auto) 9.2, Eos % (Auto) 2.8, Baso % (Auto) 1.0, Neut # (Auto) 5.6, Lymph # (Auto) 2.1, [place] # (Auto) 0.8, Eos # (Auto) 0.3, Baso # (Auto) 0.1, Sodium 136, Potassium 4.2, Chloride 102, Carbon Dioxide 26, Anion Gap 12.2, BUN 16, Creatinine 1.10, Estimated Creat Clear 84, Estimated GFR 68, Est GFR ( Amer) 82, Glucose 110 H, Calcium 9.9, Magnesium 1.9, Total Bilirubin 1.2, AST 30, ALT 20, Alkaline Phosphatase 63, Troponin I < 0.01, Total Protein 8.1, Albumin 5.1 H, Globulin 3.0, Albumin/Globulin Ratio 1.7, Lipase 83 04/14/25 15:17: SARS-CoV-2 (PCR) Not detected, Influenza A Untype (PCR) Not detected, Influenza Type B (PCR) Not detected 04/14/25 15:00 04/14/25 15:00 Orders (Tests/Meds): ED MEDICATIONS Generic Name Dose Route Start Last Admin Trade Name Freq PRN Reason Stop Dose Admin Sodium Chloride 8 ml 04/14/25 15:07 04/14/25 15:20 Sodium Chloride 0.9% 10ml Vial IV 05/14/25 15:06 8 ml NEEDED PRN Administration dilute pepcid Sodium Chloride 10 ml 04/14/25 15:30 04/14/25 15:32 Sodium Chloride 0.9% 10ml Syr (Rad Only) IV 05/14/25 15:29 10 ml NEEDED PRN Administration Maintain IV Site Discontinued Medications Generic Name Dose Route Start Last Admin Trade Name Freq PRN Reason Stop Dose Admin Famotidine 20 mg 04/14/25 15:07 04/14/25 15:20 Famotidine 20mg/2ml Vial IV 04/14/25 15:08 20 mg ONCE ONE Administration Sodium Chloride 1,000 mls @ 999 mls/hr 04/14/25 15:07 04/14/25 15:19 Sod Chlor 0.9% 1000ml Bag IV 04/14/25 16:07 999 mls/hr .Q1H1M ONE Administration Iopamidol 75 ml 04/14/25 15:30 04/14/25 15:32 Iopamidol-370 (76%);100ml Bottle IV 04/14/25 15:31 75 ml ONCE ONE Administration Ketorolac Tromethamine 30 mg 04/14/25 15:07 04/14/25 15:19 Ketorolac 30mg/Ml Vial IV 04/14/25 15:08 30 mg ONCE ONE Administration Ondansetron HCl 4 mg 04/14/25 15:07 04/14/25 15:20 Ondansetron 4mg/2ml Vial IV 04/14/25 15:08 4 mg ONCE ONE Administration ORDERS Category Date Time Status CT abdomen pelvis w con Stat Cat Scan 04/14/25 15:07 Completed Chest XR -- portable [XR chest portable] Stat Exams 04/14/25 15:07 Completed CBC [Complete Blood Count Auto Diff] Stat Lab 04/14/25 15:00 Completed Comprehensive Metabolic Panel Stat Lab 04/14/25 15:00 Completed HIV Combo Routine Lab 04/14/25 15:00 Received Hepatitis C Ab Qual. W/ RFX Routine Lab 04/14/25 15:00 Received Lipase Stat Lab 04/14/25 15:00 Completed Magnesium Stat Lab 04/14/25 15:00 Completed Rapid PCR Covid and Flu A/B Stat Lab 04/14/25 15:17 Completed Trop I [Troponin I] Stat Lab 04/14/25 15:00 Completed Troponin I Q3H Lab 04/14/25 18:15 Ordered Troponin I Q3H Lab 04/14/25 21:15 Ordered UA [Urinalysis and Microscopic] Stat Lab 04/14/25 14:52 Completed Medical Decision Narrative: patient is a 59-year-old male presenting to the emergency department for evaluation of blood in his urine, right-sided abdominal pain and some left-sided back pain. Patient is hemodynamically stable and nontoxic-appearing upon arrival, afebrile. Differential diagnosis includes kidney stone, prostatitis, UTI, among others. Workup will be conducted with hematologic labs, specific imaging. Initial inventions include crystalloid bolus, analgesics, antibiotics. Initial workup reviewed by md hematologic labs are remarkable forWhite count was normal at 8.9, H&H was normal. Chemistry panel was normal, troponin was less than 0.01 urine was trace blood red blood cells were 3-5 with trace of bacteria and no COVID or flu. Patient's imaging showed a normal chest x-ray read by radiology, CT scan of abdomen and pelvis showed no acute process but shows a 10 mm hyperdense right renal lesion which could be a small lesion or a hyperdense cyst but recommend renal mass protocol CT in the outpatient setting. It also shows an enlarged prostate which we will treat today. Patient explained to him about the renal cyst. Will follow outpatient. Patient safe for discharge home. Critical Care Critical Care Time Critical Care Time: No
[2025-04-14] MEDS: 0.9 % SODIUM CHLORIDE 1000ML 1,000 ML 999 ML IV (15:19)
[2025-04-14] MEDS: KETOROLAC 30MG/ML VIAL 30 MG IV (15:19)
[2025-04-14 15:20] LABS: Alanine Aminotransferase 20 U/L (12-78); Albumin Level 5.1 g/dl (3.5-5.0); Albumin/Globulin Ratio 1.7 (1.1-1.8); Alkaline Phosphatase 63 U/L (38-126); Anion Gap 12.2 mEq/L (5-15); Aspartate Amino Transferase 30 U/L (17-59); Bilirubin,Total 1.2 mg/dl (0.2-1.3); Blood Urea Nitrogen 16 mg/dl (9-20); Calcium 9.9 mg/dl (8.4-10.2); Carbon Dioxide 26 mmol/L (22.0-30.0); Chloride 102 mmol/L (98-107); Creatinine Clearance Estimated 84 mL/min (50-200); Creatinine,Serum 1.10 mg/dl (0.66-1.25); Estimated Glomerular Filt Rate 68 ml/min (>60); GFR (African American) 82 ML/MIN (>60); Globulin 3.0 g/dL (1.3-3.2); Glucose 110 mg/dl (74-100); Lipase 83 U/L (23-300); Magnesium 1.9 mg/dl (1.6-2.3); Potassium 4.2 mmoL/L (3.5-5.1); Sodium 136 mmol/L (136-145); Total Protein,Serum 8.1 g/dl (6.3-8.2)
[2025-04-14] MEDS: FAMOTIDINE 20MG/2ML VIAL 20 MG IV (15:20)
[2025-04-14] MEDS: SODIUM CHLORIDE 0.9% 10ML VIAL 8 ML IV (15:20)
[2025-04-14] MEDS: ONDANSETRON 4MG/2ML VIAL 4 MG IV (15:20)
[2025-04-14 15:23] LABS: Coronavirus 19, PCR Not Detected (NotDetected); Influenza A, PCR Not Detected (NotDetected); Influenza B, PCR Not Detected (NotDetected)
[2025-04-14 15:29] LABS: Bacteria,Urine 1+ /lpf; Squamous Epithelial Cell,Urine Occasional #/hpf (0-5); WBC,Urine Occasional #/hpf (0-3)
[2025-04-14] MEDS: SODIUM CHLORIDE 0.9% 10ML SYR (RAD ONLY) 10 ML IV (15:32)
[2025-04-14] MEDS: IOPAMIDOL-370 (76%);100ML BOTTLE 75 ML IV (15:32)
--- NOTE | 2025-04-14 15:37 | PC.NURSE ---
Patient in room and needs nothing at this time.
--- NOTE | 2025-04-14 15:39 | PC.NURSE ---
Gave the patient a blanket.
[2025-04-14 15:40] LABS: Troponin I < 0.01 ng/ml (0.00-0.034)
[2025-04-14 16:53] LABS: Hepatitis C Ab Qual. W/ RFX NEGATIVE (Negative)
== END 2025-04-14 17:05 | disposition home or self-care (01) ==
PROVIDERS: Emergency Provider Student in an Organized Health Care Education/Training Program; PCP Nurse Practitioner
DX: N41.0 Acute prostatitis (principal); R10.84 Generalized abdominal pain
CPT/HCPCS: 71045; 74177; 80053; 81001; 83690; 83735; 84484; 85025; 86803; 87389; 87636; 96361; 96374; 96375; 99285; J1308; J1885; J2405; J7030; Q9967